=== PATIENT | female | born 1955 | race Hispanic/Latino ===

== ENCOUNTER → 2024-07-03 | Day surgery (SDC) | payer MEDICARE ==
[2024-07-02 09:25] LABS: BASOPHILS % 0.5 % (0.0-1.0); EOSINOPHILS # (AUTO) 0.2 (0.0-0.4); EOSINOPHILS % 2.5 % (0.0-6.0); HEMOGLOBIN 13.8 g/dL (12.0-16.0); LYMPHOCYTES # (AUTO) 1.4 (1.0-3.2); LYMPHOCYTES % 21.9 % (18.0-39.1); MEAN CORPUSCULAR HEMOGLOBIN 32.9 pg (28-32); MEAN CORPUSCULAR HGB CONC 32.9 g/dL (31-35); MEAN CORPUSCULAR VOLUME 100.2 fL (81-99); MONOCYTES # (AUTO) 0.6 (0.2-0.8); MONOCYTES % 9.2 % (4.4-11.3); NEUTROPHILS # (AUTO) 4.1 (2.1-6.9); NEUTROPHILS % 65.7 % (38.7-80.0); PLATELET COUNT 228 x10e3/uL (140-360); RED BLOOD COUNT 4.19 x10e6/uL (3.6-5.1); RED CELL DISTRIBUTION WIDTH 13.2 % (11.7-14.4)
[2024-07-02 09:52] LABS: ANION GAP 14.1 mmol/L (8-16); CALCIUM 9.1 mg/dL (8.4-10.2); CREATININE, SERUM 1.03 mg/dL (0.57-1.11); POTASSIUM 4.1 mmol/L (3.5-5.1)
[~2024-07-03] MED LIST: ACETAMINOPHEN 1000 MG/100 ML 100 ML IV ONE; ACETAMINOPHEN 1000 MG/100 ML IV PRN; ASPIRIN 325 MG TAB PO SCH; BISOPROLOL-HCT1 EACH PO; CELEBREX200 MG PO; CELECOXIB 100 MG CAP PO SCH; DEXAMETHASONE SOD PHOS INJ 4 MG/ML SDV ONE; DIPHENHYDRAMINE HCL INJ 50 MG/ML VIAL IV PRN; DOCUSATE SODIUM 100 MG CAP PO PRN; FARXIGA10 MG PO; FENTANYL CITRATE/PF 100MCG/2 ML INJ ONE; HYDROCODON-ACE1 EAC9 PO; HYDROCODONE/APAP 5MG-325MG TAB PO PRN; HYDROCODONE/APAP 7.5MG-325MG 1 EA TAB PO PRN; LIDOCAINE HCL 2% LOCAL INJ 5 ML SDV VIAL INJ ONE; LIPITOR20 MG PO; LOVENOX40 MG/0.4 SC; MEMANTINE HCL10 MG PO; ONDANSETRON HCL INJ 2MG/ML 2ML 2 MG/ML VIAL ONE; PHENYLEPHRINE HCL 1% 10 MG/ML VIAL ONE; PROPOFOL IV EMULSION 10 MG/ML 20 ML VIAL ONE; SEVOFLURANE INHAL SOLN 250 ML PEN BTL ONE; SODIUM CHLORIDE 0.9% 100 ML ONE; SODIUM CHLORIDE 0.9% 1000ML 1,000 ML IV SCH
[2024-07-03] MEDS: DEXAMETHASONE SOD PHOS 10 MG/1 ML VIAL ONE (07:34)
[2024-07-03] MEDS: GABAPENTIN 300 MG CAP ONE (07:34)
[2024-07-03] MEDS: CEFAZOLIN SODIUM 2 GM ONE (07:35)
[2024-07-03] MEDS: CELECOXIB 200 MG CAP ONE (07:35)
[2024-07-03] MEDS: LACTATED RINGER'S 1,000 ML ONE (07:35)
[2024-07-03 11:40] VITALS: TEMP 97
[2024-07-03] MEDS: ONDANSETRON HCL INJ 2MG/ML 2ML 2 MG/ML VIAL IV PRN (12:45)
[2024-07-03 16:20] VITALS: BP 129/81; PULSE 81; RESP 16; O2SAT 97
== END | disposition home health service (06) ==
LOC: OR 07:01
PROVIDERS: ATTEND Specialist
DX: M17.11 Unilateral primary osteoarthritis, right knee (principal); M25.761 Osteophyte, right knee; M06.9 Rheumatoid arthritis, unspecified; I10 Essential (primary) hypertension; E78.5 Hyperlipidemia, unspecified; E11.9 Type 2 diabetes mellitus without complications; E66.01 Morbid (severe) obesity due to excess calories; R06.02 Shortness of breath; Z88.6 Allergy status to analgesic agent; Z88.8 Allergy status to other drugs, medicaments and biological substances; Z01.810 Encounter for preprocedural cardiovascular examination; Z01.812 Encounter for preprocedural laboratory examination; Z01.818 Encounter for other preprocedural examination; Z79.84 Long term (current) use of oral hypoglycemic drugs; Z79.02 Long term (current) use of antithrombotics/antiplatelets; Z79.899 Other long term (current) drug therapy; Z68.35 Body mass index [BMI] 35.0-35.9, adult
CPT/HCPCS: 27447; 36415 ×2; 71046; 73560; 80048; 82948; 85025; 86850; 86900; 93005; 97116; 97162; 97530; C1713 ×2; C1776 ×2; J0131; J0171; J0690; J1100 ×2; J2003; J2371; J2405; J2704; J2795; J3010; J7050; J7121

== ENCOUNTER 2024-07-16 07:16 | Observation (INO) | payer MEDICARE, OTHER ==
[~2024-07-16] VITALS: Ht 165.1 cm; Wt 103.4 kg
[~2024-07-16 07:16] MED LIST changes: -ACETAMINOPHEN 1000 MG/100 ML 100 ML IV ONE; -ACETAMINOPHEN 1000 MG/100 ML IV PRN; -ASPIRIN 325 MG TAB PO SCH; -CELECOXIB 100 MG CAP PO SCH; -DEXAMETHASONE SOD PHOS INJ 4 MG/ML SDV ONE; -DIPHENHYDRAMINE HCL INJ 50 MG/ML VIAL IV PRN; -DOCUSATE SODIUM 100 MG CAP PO PRN; -FENTANYL CITRATE/PF 100MCG/2 ML INJ ONE; -HYDROCODONE/APAP 5MG-325MG TAB PO PRN; -HYDROCODONE/APAP 7.5MG-325MG 1 EA TAB PO PRN; -LIDOCAINE HCL 2% LOCAL INJ 5 ML SDV VIAL INJ ONE; -ONDANSETRON HCL INJ 2MG/ML 2ML 2 MG/ML VIAL ONE; -PHENYLEPHRINE HCL 1% 10 MG/ML VIAL ONE; -PROPOFOL IV EMULSION 10 MG/ML 20 ML VIAL ONE; -SEVOFLURANE INHAL SOLN 250 ML PEN BTL ONE; -SODIUM CHLORIDE 0.9% 100 ML ONE; -SODIUM CHLORIDE 0.9% 1000ML 1,000 ML IV SCH
[2024-07-16] MEDS: CELECOXIB 200 MG CAP ONE (08:14)
[2024-07-16] MEDS: CEFAZOLIN SODIUM 2 GM ONE (08:14)
[2024-07-16] MEDS: DEXAMETHASONE SOD PHOS 10 MG/1 ML VIAL ONE (08:14)
[2024-07-16] MEDS: LACTATED RINGER'S 1,000 ML ONE (08:15)
[2024-07-16] MEDS: GABAPENTIN 300 MG CAP ONE (08:15)
[2024-07-16 08:56] LABS: BASOPHILS % 0.5 % (0.0-1.0); EOSINOPHILS # (AUTO) 0.1 (0.0-0.4); EOSINOPHILS % 1.7 % (0.0-6.0); HEMOGLOBIN 12.3 g/dL (12.0-16.0); LYMPHOCYTES # (AUTO) 1.1 (1.0-3.2); LYMPHOCYTES % 13.8 % (18.0-39.1); MEAN CORPUSCULAR HEMOGLOBIN 33.3 pg (28-32); MEAN CORPUSCULAR HGB CONC 33.2 g/dL (31-35); MEAN CORPUSCULAR VOLUME 100.3 fL (81-99); MONOCYTES # (AUTO) 0.6 (0.2-0.8); NEUTROPHILS # (AUTO) 6.2 (2.1-6.9); NEUTROPHILS % 76.5 % (38.7-80.0); PLATELET COUNT 248 x10e3/uL (140-360); RED BLOOD COUNT 3.69 x10e6/uL (3.6-5.1); RED CELL DISTRIBUTION WIDTH 13.2 % (11.7-14.4)
[2024-07-16] MEDS: SCOPOLAMINE 1 MG PATCH ONE (10:08)
[2024-07-16] MEDS ORDERED: FENTANYL CITRATE/PF 100MCG/2 ML INJ ONE ×2 (10:16→10:18)
[2024-07-16] MEDS ORDERED: MIDAZOLAM HCL 2 MG/2 ML VIAL ONE (10:16)
[2024-07-16] MEDS ORDERED: PROPOFOL IV EMULSION 10 MG/ML 20 ML VIAL ONE (10:19)
[2024-07-16] MEDS ORDERED: LIDOCAINE HCL 2% LOCAL INJ 5 ML SDV VIAL INJ ONE (10:19)
[2024-07-16] MEDS ORDERED: SEVOFLURANE INHAL SOLN 250 ML PEN BTL ONE (10:19)
[2024-07-16] MEDS ORDERED: ONDANSETRON HCL INJ 2MG/ML 2ML 2 MG/ML VIAL ONE (11:21)
[2024-07-16] MEDS ORDERED: FAMOTIDINE 20 MG/2 ML VIAL IV ONE (11:21)
[2024-07-16] MEDS ORDERED: ACETAMINOPHEN 1000 MG/100 ML 100 ML IV ONE (11:23)
[2024-07-16] MEDS ORDERED: SODIUM CHLORIDE 0.9% INJ 10 ML VIAL ONE (11:43)
[2024-07-16] MEDS ORDERED: DEXMEDETOMIDINE HCL 2 ML ONE (11:43)
[2024-07-16] MEDS ORDERED: SODIUM CHLORIDE 0.9% 100 ML ONE (11:44)
[2024-07-16] MEDS ORDERED: DIPHENHYDRAMINE HCL INJ 50 MG/ML VIAL IV PRN (13:00)
[2024-07-16] MEDS ORDERED: HYDROCODONE/APAP 5MG-325MG TAB PO PRN (13:00)
[2024-07-16] MEDS ORDERED: ONDANSETRON HCL INJ 2MG/ML 2ML 2 MG/ML VIAL IV PRN (13:00)
[2024-07-16] MEDS ORDERED: DOCUSATE SODIUM 100 MG CAP PO PRN (13:00)
[2024-07-16] MEDS ORDERED: ACETAMINOPHEN 650 MG SUPP PR PRN (13:00)
[2024-07-16] MEDS: FENTANYL CITRATE/PF 100MCG/2 ML INJ ONE (14:11)
[2024-07-16 15:21] VITALS: BP 150/80; PULSE 70; RESP 17; TEMP 97.4; O2SAT 98
[2024-07-16] MEDS ORDERED: TRANEXAMIC ACID 1,000 MG/10 ML ML ONE ×2 (15:36→15:37)
[2024-07-16 15:44] VITALS: BP 150/80; PULSE 70; RESP 17; TEMP 97.4; O2SAT 98
[2024-07-16 16:03] VITALS: BP 156/82; PULSE 70; RESP 18; TEMP 97; O2SAT 95
[2024-07-16] MEDS: CELECOXIB 200 MG CAP PO SCH (18:09)
[2024-07-16 20:00] VITALS: BP 126/80; PULSE 78; RESP 20; TEMP 97.5; O2SAT 95
[2024-07-16] MEDS ORDERED: ZOLPIDEM TARTRATE 5 MG TAB PO PRN (21:00)
[2024-07-17] VITALS (7 sets, daily range): BP systolic 91–125; BP diastolic 60–74; PULSE 65–71; RESP 16–18; TEMP 97.7–98.3; O2SAT 96–100
[2024-07-17 05:09] LABS: HEMATOCRIT 35.2 % (34.2-44.1); HEMOGLOBIN 11.3 g/dL (12.0-16.0)
[2024-07-17] MEDS: MEMANTINE 10 MG TAB PO SCH (09:39)
[2024-07-17] MEDS: HYDROCODONE/APAP 7.5MG-325MG 1 EA TAB PO PRN (10:13)
[2024-07-17] MEDS: ACETAMINOPHEN 1000 MG/100 ML IV PRN (12:33)
[2024-07-17] MEDS ORDERED: ATORVASTATIN 20 MG TAB PO SCH (21:00)
== END 2024-07-17 18:20 | disposition home or self-care (01) ==
LOC: OR 07:16 → PACU V 12:54 → MED/SURG 14:41
PROVIDERS: ADMIT Specialist; ATTEND Specialist
DX: T84.022A Instability of internal right knee prosthesis, initial encounter (principal); W01.0XXA Fall on same level from slipping, tripping and stumbling without subsequent striking against object, initial encounter; E11.9 Type 2 diabetes mellitus without complications; I10 Essential (primary) hypertension; E78.5 Hyperlipidemia, unspecified; Z88.6 Allergy status to analgesic agent; D64.9 Anemia, unspecified; E66.01 Morbid (severe) obesity due to excess calories; Z68.37 Body mass index [BMI] 37.0-37.9, adult
CPT/HCPCS: 27487; 36415 ×2; 73560; 82948 ×2; 85014; 85018; 85025; 86850; 86900; 87071; 87075; 87205; 94799; 97116 ×2; 97162; 97530; 99252; C1713; C1776 ×4; G0378 ×2; J0131 ×2; J0171; J0690 ×2; J1100; J2003; J2250; J2405; J2704; J2795; J3010; J7050; J7121; J1308